=== PATIENT | male | born 1985 | race Caucasian/White ===

== ENCOUNTER 2016-07-26 17:12 | Emergency (ER) ==
--- NOTE | 2016-07-26 18:15 | PROVIDER DOCUMENTATION ---
HPI-General Adult - General Chief Complaint: Fall Stated Complaint: FALL Time Seen by Provider: 07/26/16 18:00 Source: patient Allergies/Adverse Reactions: Patient Allergies Allergy/AdvReac Type Severity Reaction Status Date / Time No Known Allergies Allergy Verified 08/17/12 18:16 Home Medications: Home Medication List Medication Instructions Recorded Confirmed Last Taken Type Alprazolam [Xanax] 1 mg PO DAILY 07/26/16 07/26/16 Unknown History Cyclobenzaprine [Flexeril] 10 mg PO TID #20 tablet 07/26/16 Unknown Rx Metoprolol [Lopressor] 25 mg PO DAILY 07/26/16 07/26/16 Unknown History Omeprazole 20 mg PO DAILY #20 tablet. 07/26/16 Unknown Rx Oxcarbazepine [Trileptal] 150 mg PO 07/26/16 Unknown History - History of Present Illness -Gen Adult Nature of Presenting Problems: Pt. is 31 yom that presents with c/o neck and back pain after he states he fell off of some scaffolding approximately 3 stories high. Pt. reports he landed on a pile of sod that was being put out. Pt. denies any LOC or SIFUENTES but reports neck and back pain. Pt. denies any deficits, no numbness or tingling, no decreased motor function and no difficulties with urinating. Location of Pain/Injury: reports: neck, back. denies: head, face, mouth, chest , upper extremity, hand(s), abdomen, pelvis, genitalia, lower extremity, feet, upper body, lower body, generalized Pain Radiation: reports: no radiation Quality of Pain: reports: aching. denies: burning, cramping, dull, fullness, indigestion, pressure, sharp, stabbing, tearing, throbbing, tightness Severity: reports: mild. denies: moderate, severe Onset/Duration: reports: abrupt, this morning Timing: reports: still present. denies: improving, gone now, resolved prior to arrival, intermittent, constant, changing over time, getting worse Context/Activities at Onset: reports: moderate activity, recent trauma history. denies: recent emotional stress, recent physical stress, possible bad food, cold exposure, out of country travel Modifying Factors: improves with: nothing Associated Symptoms: reports: back/neck pain, muscle aches. denies: anxiety, arm pain, chest pain, constipation, cough, diaphoresis, diarrhea, dizziness, EENT symptoms, fatigue, fever/chills, genitourinary problems, headaches, heartburn, joint pain, sinus congestion/drainage, nausea, rash, seizure, shortness of breath, sensory/motor loss, pain with inspiration, swelling/mass in abdomen, syncope, vomiting, weakness, trouble walking Similar Symptoms Previously?: Yes Recently seen or treated by another doctor?: No Review of Systems - Adult - REVIEW OF SYSTEMS - ADULT Constitutional: reports: see HPI, fever. denies: chills, fatique Eyes: reports: see HPI. denies: discharge, blurred vision, double vision Ears, Nose, Mouth & Throat: reports: see HPI. denies: ear discharge, ear pain, sinus problem, nose pain, loose teeth, mouth/dental pain, throat pain, throat swelling Cardiovascular: reports: see HPI. denies: chest pain, irregular heart rate, orthopnea, syncope Respiratory: reports: see HPI. denies: cough, dyspnea on exertion, pleurisy, shortness of breath, wheezing Gastrointestinal: reports: see HPI, frequent heartburn. denies: abdominal pain , hematemesis, diarrhea, nausea, vomiting Genitourinary: reports: see HPI. denies: dysuria, discharge, hematuria, hesitency, urgency Musculoskeletal: reports: see HPI, back pain, muscle aches, neck pain. denies: bone pain, joint pain, joint swelling Integumentary: reports: see HPI. denies: hives, hair loss, itching, rash, skin thickening Neurological: reports: see HPI. denies: ataxia, headache/migraines, numbness, seizure, tremors Psychiatric: reports: see HPI. denies: anxiety, depression, emotional problems , insomnia, panic attacks, suicidal thoughts Past History - Adult - PAST MEDICAL HISTORY-ADULT Review of Records: reports: Old Records Reviewed, Nursing Assessment Review, Medications Reviewed, Social history reviewed & non-contributory. Major Childhood Illnesses: reports: denies history Cardiovascular: reports: denies history Respiratory: reports: denies history Gastrointestinal: reports: denies history Obstetrical/Gynecological: reports: denies history Genitourinary: reports: denies history Musculoskeletal: reports: denies history Neurological: reports: denies history Psychiatric: reports: depression Endocrine/Immune: reports: denies history Other Conditions: reports: denies history - IMMUNIZATION STATUS Childhood Immunizations: See Nurse Assessment Flu Vaccine: See Nurse Assessment - FAMILY HISTORY Family History: reviewed, not pertinent - SOCIAL HISTORY Smoking: cigarettes, greater than 1 pack/day Provider spent 3-5 mins advising pt. on dangers of tobacco.: Discussed the need to stop smoking. Physical Exam-General - PHYSICAL EXAM-ADULT Initial Vital Signs Reviewed: Yes - CONSTITUTIONAL General Appearance: alert, mild distress, thin, slow to respond. negative: obese, anxious, lethargic, obtunded, combative - EYES Eyes: PERRL/EOMI, pink conjunctivae. negative: conjuctival exudate, scleral icterus, subconjunctival hemorrhage - HEAD, EARS, NOSE, MOUTH & THROAT HENMT: normocephalic/atraumatic, moist mucous membranes. negative: angioedema, frontal tenderness, maxillary tenderness - NECK Neck: full range of motion, supple, normal inspection, tender lateral, tender midline. negative: lymphadenopathy, trachial deviation, thyromegaly - RESPIRATORY Respiratory: lungs clear, normal breath sounds. negative: crackles, rales, rhonchi, stridor, wheezing - CARDIOVASCULAR Cardiovascular: normal peripheral pulses, regular rate, rhythm, no edema, no JVD , no murmur. negative: extra beats, friction rub, irregularly irregular - CHEST (BREASTS) Chest/Breast: deferred - GASTROINTESTINAL (ABDOMEN) Abdominal Exam: normal bowel sounds, non tender, soft. negative: distended, guarding, rigid, rebound, tenderness, hernia, mass - GENITOURINARY Male Genitalia: deferred Rectal Exam: deferred Hemoccult Exam: deferred - LYMPHATIC Lymphatic: no adenopathy. negative: axilla node tender, cervical node tenderness - MUSCULOSKELETAL Back Exam: normal inspection, no CVA tenderness, no vertebral tenderness. negative: ecchymosis, scoliosis, swelling, vertebral tenderness Extremity: normal range of motion, non-tender, normal gait, normal inspection. negative: deformity, erythema, inflammation, swelling, tenderness Peripheral Pulses: radial (R): 2+, radial (L): 2+ - SKIN Integumentary: normal color, normal turgor, warm/dry. negative: cyanosis, diaphoresis, ecchymosis, erythema, jaundice, mottled, pallor, petechiae, purpura , rash, swelling, tenderness - NEUROLOGIC Neurologic: grossly normal, no motor/sensory deficits. negative: aphasia, facial droop, focal weakness, motor weakness, sensory deficit - PSYCHIATRIC Psych/Mental Status: normal mood/affect, normal thought content, normal thought process, oriented x 3. negative: anxious, paranoid, tearful Progress - PLAN OF CARE/RESULTS Progress/Plan/Lab Results: Discussed results and plan of care with patient. Patient agrees with plan and verbalizes understanding. Vital Signs Temp Pulse Resp BP Pulse Ox 07/26/16 17:29 100.5 F H 93 H 18 118/75 98 No Known Allergies Allergy (Verified 08/17/12 18:16) Alprazolam [Xanax] 1 mg PO DAILY 07/26/16 Metoprolol [Lopressor] 25 mg PO DAILY 07/26/16 Oxcarbazepine [Trileptal] 150 mg PO 07/26/16 Orders Category Date Time Status HEAD/C-SPINE W/O CONTRAST [CT] Stat Exams 07/26/16 18:09 Taken T-SPINE/L-SPINE W/O CONTRAST [CT] Stat Exams 07/26/16 18:09 Taken Acetaminophen [Tylenol] Med 07/26/16 18:18 Discontinued 1,000 mg PO NOW ONE - CT/MRI 1 CT Study: Cervical Spine, Head, Lumbar Spine, Thorax CT Results: No Bleed, No Fx, No subluxation ([place]) Departure - Departure Time of Disposition Order: 20:00 DIAGNOSIS: Muscular aches Acid reflux Qualifiers: Esophagitis presence: esophagitis presence not specified Qualified Code(s): K21.9 - Gastro-esophageal reflux disease without esophagitis Disposition: HOME 01 Certified Medical Emergency: Emergent Condition: Stable Additional Instructions: Follow up with primary care physician Take medications as directed Return to ED for any concerns or worsening of symptoms ED Follow Up Instructions: You have been treated by a care provider in the Emergency Department. These instructions are being provided to you so you can have an understanding of how to care for yourself upon discharge. Upon discharge from the Emergency Department, you are responsible for making arrangements for follow-up care by a physician of your choice. Take all prescribed medications as directed. Return to the Emergency Department immediately for any new or worsening symptoms. You may call the Physician Referral phone number at [phone] to obtain a list of Physicians who are taking new patients. Prescriptions: Cyclobenzaprine [Flexeril] 10 mg PO TID #20 tablet Omeprazole 20 mg PO DAILY #20 tablet.dr Alford - Physician/ HANNAH Attestation Patient care was provided by Advanced Practice Provider:: Yes Advanced Practice Provider:: Roula Bhatt Advanced Practice Provider documentation review:: The Mid-level provider documentation, treatment plan and medical decision making was reviewed by the physician who agrees with all treatment and medical decision making by the MLP.
[2016-07-26] MEDS ORDERED: TYLENOL PO ONE (18:18)
[2016-07-26] MEDS ORDERED: NORFLEX IM ONE (20:01)
[2016-07-26] MEDS ORDERED: G.I. COCKTAIL PO ONE (20:01)
[2016-07-26] MEDS ORDERED: PRILOSEC PO ONE (20:01)
[2016-07-26] MEDS ORDERED: TORADOL IM ONE (20:02)
[2016-07-26 20:05] VITALS: BP 113/74
--- NOTE | 2016-07-27 10:20 | Diag Imaging Result Document ---
PROCEDURE NAME: HEAD/C-SPINE W/O CONTRAST - 07/26/2016 CT OF THE HEAD WITHOUT CONTRAST: FINDINGS: There is no evidence of intracranial mass effect, bleed, or abnormal extra-axial fluid collection. There are no previous studies available for comparison. There is some mucosal thickening in the ethmoid air cells and left sphenoid sinus. No air-fluid levels are present. The calvarium appears to be intact. IMPRESSION: No evidence of acute intracranial disease. Chronic sinusitis. CT OF THE CERVICAL SPINE: FINDINGS: Mucosal thickening is again noted in the left and right sphenoid sinuses. The mastoid air cells are well pneumatized and clear. There is no evidence of acute fracture or subluxation. The lung apices are without evidence of pneumothorax. There is possibly some atelectasis present particularly in the right upper lobe. There is no evidence of prevertebral soft tissue swelling. No evidence of fracture or subluxation is present. IMPRESSION: No evidence of acute bony disease.
--- NOTE | 2016-07-27 10:23 | Diag Imaging Result Document ---
PROCEDURE NAME: T-SPINE/L-SPINE W/O CONTRAST - 07/26/2016 CT OF THE THORACIC SPINE: FINDINGS: There is no evidence of fracture or subluxation in the thoracic spine. The visualized ribs appear to be intact. There is some apparent atelectasis on the right side, particularly in the lower lobe. No definite pleural fluid collections are present. There is no evidence of pneumothorax. IMPRESSION: No evidence of acute bony disease. CT OF THE LUMBAR SPINE: FINDINGS: There is no evidence of acute fracture or subluxation. The L5-S1 disk space is slightly narrowed.
== END 2016-07-26 20:35 | disposition home or self-care (01) ==
LOC: P.ED 17:12
DX: M79.1 Myalgia (principal); K21.9 Gastro-esophageal reflux disease without esophagitis; M54.2 Cervicalgia; M54.9 Dorsalgia, unspecified; W12.XXXA Fall on and from scaffolding, initial encounter; R12 Heartburn; F32.9 Major depressive disorder, single episode, unspecified; F17.210 Nicotine dependence, cigarettes, uncomplicated; Z71.6 Tobacco abuse counseling; Z79.899 Other long term (current) drug therapy
CPT/HCPCS: 70450; 72125; 72128; 72131; 96372; J1885; J2360